=== PATIENT | male | born 1965 | race Caucasian/White ===

== ENCOUNTER 2017-04-29 19:36 | Emergency (ER) | payer BC, OTHER ==
[~2017-04-29] VITALS: Ht 200.7 cm; Wt 240.4 kg
[~2017-04-29 19:36] MED LIST: FELO10TA PO; FURO40TA4 PO; LOSA50TA6 PO; POT20T PO
[2017-04-29] MEDS ORDERED: cloNIDine HCL 0.1 MG TAB PO ONE (20:00)
[2017-04-29 20:28] LABS: Basophils # (auto) 0 uL; Basophils % (auto) 0.2 % (0.0-2.0); CONDITION AutoValidated; Eosinophils # (auto) 0 uL; Hematocrit 42.3 % (41.0-53.0); Hemoglobin 14.3 g/dL (13.5-17.5); Lymphocytes # (auto) 0.4 uL; Lymphocytes % (auto) 3.4 % (10.0-50.0); Mean Corpuscular Hemoglobin 29.6 pg (28.0-32.0); Mean Corpuscular Hgb Conc. 33.8 g/dL (32.0-36.0); Mean Corpuscular Volume 87.6 fL (80.0-100.0); Mean Platelet Volume 10.3 fL (7.4-10.4); Monocytes # (auto) 0.9 uL; Monocytes % (auto) 6.9 % (0.0-12.0); Neutrophils # (auto) 11.3 uL; Neutrophils % (auto) 89.5 % (37.0-80.0); Platelet Count (auto) 192 10^3/uL (140-450); Red Cell Distribution Width 14.2 % (11.6-16.0); White Blood Cell 12.7 10^3/uL (4.4-10.8)
[2017-04-29 20:35] LABS: INR 1.09 (0.9-1.15); Partial Thromboplastin Time 28.2 sec (22.64-33.71); Prothrombin Time 11.9 sec (9.37-12.3)
[2017-04-29 21:07] LABS: Albumin 3.5 g/dL (3.4-5.0); Alkaline Phosphatase 56 U/L (45-117); Amylase 16 U/L (25-115); Anion Gap 10 (5-15); Aspartate Aminotransferase 13 U/L (15-37); BUN/Creatinine Ratio 10.5; Bilirubin, Total 1.3 mg/dL (0.2-1.0); Blood Urea Nitrogen 19 mg/dL (7-18); Carbon Dioxide 25 mmol/L (21-32); Chloride 98 mmol/L (98-107); GFR African American 51 mL/min; GFR Non-African American 42 mL/min; Glucose 125 mg/dL (74-106); Potassium 3.6 mmol/L (3.5-5.1); Sodium 133 mmol/L (136-145); Total Protein 7.7 g/dL (6.4-8.2)
[2017-04-29 21:54] VITALS: BP 148/81
== END 2017-04-29 21:56 | disposition home or self-care (01) ==
LOC: EDBD 19:36 → ER 19:36
DX: K59.01 Slow transit constipation (principal); J44.9 Chronic obstructive pulmonary disease, unspecified; I10 Essential (primary) hypertension; E66.01 Morbid (severe) obesity due to excess calories; Z68.43 Body mass index [BMI] 50.0-59.9, adult; Z79.899 Other long term (current) drug therapy
CPT/HCPCS: 36415; 80053; 82150; 83690; 84484; 85025; 85610; 85730; 93005

== ENCOUNTER 2020-03-16 23:00 | Inpatient (IN) | payer BC ==
[~2020-03-16] VITALS: Ht 200.7 cm; Wt 249.0 kg
[~2020-03-16 23:00] MED LIST changes: -FELO10TA PO; +FELO10TA3 PO; +LOSA-69 PO; -LOSA50TA6 PO
[2020-03-16] MEDS ORDERED: methylPREDNISolone SOD SUCC 500 MG in SODIUM CHL 0.9% 100 ML IV ONE (23:30)
[2020-03-16] MEDS ORDERED: cefTRIAXone 1GM/50ML D5W 50 ML IV ONE (23:30)
[2020-03-16 23:37] LABS: Basophils # (auto) 0.1 10 ^3/uL (0-0.2); Basophils % (auto) 0.7 % (0.0-2.0); Eosinophils # (auto) 0 10 ^3/uL (0-0.8); Eosinophils % (auto) 0.3 % (0.0-7.0); Hematocrit 47.5 % (41.0-53.0); Hemoglobin 15.1 g/dL (13.5-17.5); Lymphocytes # (auto) 1.1 10 ^3/uL (0.4-5.4); Mean Corpuscular Hemoglobin 29.3 pg (28.0-32.0); Mean Corpuscular Hgb Conc. 31.8 g/dL (32.0-36.0); Mean Corpuscular Volume 92.1 fL (80.0-100.0); Monocytes # (auto) 0.8 10 ^3/uL (0-1.3); Monocytes % (auto) 9.2 % (0.0-12.0); Neutrophils # (auto) 6.9 10 ^3/uL (1.6-8.6); Neutrophils % (auto) 77.8 % (37.0-80.0); Nucleated Red Blood Cells % 0.1 %; Platelet Count (auto) 244 10^3/uL (140-450); Red Blood Cells 5.15 10^6/uL (4.5-5.90); Red Cell Distribution Width 17.9 % (11.8-14.3); White Blood Cell 8.9 10^3/uL (4.4-10.8)
[2020-03-16] MEDS ORDERED: dilTIAZem 25 MG/5 ML VIAL IV ONE (23:45)
[2020-03-16 23:52] LABS: INR 1.38 (0.9-1.15); Partial Thromboplastin Time 25.9 sec (23.64-32.05)
[2020-03-16 23:53] LABS: BUN/Creatinine Ratio 15.8; Calcium 8.8 mg/dL (8.5-10.1); Potassium 4.4 mmol/L (3.5-5.1)
[2020-03-16 23:58] LABS: Bilirubin, Total 2.2 mg/dL (0.2-1.0); Total Protein 7.8 g/dL (6.4-8.2)
[2020-03-17 00:13] LABS: Lactic Acid w/Reflex 3.3 mmol/L (0.4-2.0)
[2020-03-17] MEDS ORDERED: methylPREDNISolone SOD SUCC 125 MG/2 ML VL ONE ×2 (00:16→00:24)
[2020-03-17] MEDS ORDERED: methylPREDNISolone SOD SUCC 125 MG/2 ML VL IV ONE (00:30)
[2020-03-17] MEDS ORDERED: CARV25TA PO (00:59)
[2020-03-17] MEDS ORDERED: SPIR50TA2 PO (00:59)
[2020-03-17] MEDS ORDERED: FURO40TA4 PO (00:59)
[2020-03-17] MEDS ORDERED: TEMAZEPAM 15 MG CAP PO PRN (01:15)
[2020-03-17] MEDS ORDERED: DEXTROSE (50%) 50ML SYRG IV PRN (01:15)
[2020-03-17] MEDS ORDERED: METOPROLOL TARTRATE 1MG/1ML-5ML VIAL IV PRN (01:15)
[2020-03-17] MEDS ORDERED: IPRATROPIUM BROM 0.5 MG/2.5ML INH SOL NEB PRN (01:15)
[2020-03-17] MEDS ORDERED: HYDROcodone-ACET 5/325MG TAB PO PRN (01:15)
[2020-03-17] MEDS ORDERED: LORazepam 0.5 MG TAB PO PRN (01:15)
[2020-03-17] MEDS ORDERED: DOCUSATE SOD 100 MG CAP PO PRN (01:15)
[2020-03-17] MEDS ORDERED: ALBUTEROL SULF 2.5 MG/0.5ML(0.5%) NEB SOLN NEB PRN (01:15)
[2020-03-17] MEDS ORDERED: ONDANSETRON HCL 4 MG/2 ML VIAL IV PRN (01:15)
[2020-03-17] MEDS ORDERED: MORPHINE SULFATE 4 MG/ML SYR/VIAL IV PRN (01:15)
[2020-03-17] MEDS ORDERED: ACETAMINOPHEN 325 MG TAB PO PRN (01:15)
[2020-03-17 01:39] VITALS: BP 105/57
[2020-03-17] MEDS: ACCU-CHEK COMFORT CURVE STRIP VI SCH ×5 (04:49→19:47)
[2020-03-17] MEDS: InsuLIN REG 1unit/0.01ml Soln (100units/ml) SC SCH ×5 (04:49→19:52)
[2020-03-17] MEDS: CLINDAMYCIN 600MG IV 50 ML IV SCH ×3 (05:40→17:50)
[2020-03-17] MEDS ORDERED: ALBUTEROL SULF HFA 90MCG INH 200DOSE IN SCH (06:00)
[2020-03-17 07:26] LABS: Basophils # (auto) 0.1 10 ^3/uL (0-0.2); Basophils % (auto) 0.8 % (0.0-2.0); Eosinophils # (auto) 0 10 ^3/uL (0-0.8); Hematocrit 43.9 % (41.0-53.0); Lymphocytes # (auto) 0.5 10 ^3/uL (0.4-5.4); Lymphocytes % (auto) 6.2 % (10.0-50.0); Mean Corpuscular Hemoglobin 29.3 pg (28.0-32.0); Mean Corpuscular Hgb Conc. 31.9 g/dL (32.0-36.0); Mean Corpuscular Volume 91.8 fL (80.0-100.0); Monocytes # (auto) 0.2 10 ^3/uL (0-1.3); Monocytes % (auto) 2.4 % (0.0-12.0); Neutrophils # (auto) 7.1 10 ^3/uL (1.6-8.6); Neutrophils % (auto) 90.6 % (37.0-80.0); Platelet Count (auto) 186 10^3/uL (140-450); Red Blood Cells 4.78 10^6/uL (4.5-5.90); Red Cell Distribution Width 17.2 % (11.8-14.3); White Blood Cell 7.8 10^3/uL (4.4-10.8)
[2020-03-17 07:40] LABS: Potassium 4.3 mmol/L (3.5-5.1)
[2020-03-17 07:42] LABS: BUN/Creatinine Ratio 17.5
--- NOTE | 2020-03-17 08:24 | NUR ---
BARIATRIC BED: [place] [facility] Bariatric Bed ordered at [facility],Reference # [id number]; ETA 03/17/20 @1535, (If needed to follow up) Call Rm Ford at [phone] Addendum: 03/17/20 at 0825 by Talya Bustillo RN Amended: Links added.
[2020-03-17] MEDS ORDERED: methylPREDNISolone SOD SUCC 125 MG/2 ML VL IV SCH (10:00)
[2020-03-17] MEDS ORDERED: FUROSEMIDE 40 MG/4 ML VIAL IV SCH (10:00)
[2020-03-17] MEDS: CARVEDILOL 12.5 MG TAB PO SCH ×2 (10:13→22:03)
[2020-03-17] MEDS: SPIRONOLACTONE 25 MG TAB PO SCH (10:13)
--- NOTE | 2020-03-17 11:12 | NUR ---
WOUND CARE NOTE: Wound care in to see patient per wound care request regarding multiple skin integrity issue that are noted present on admission. Patient is 55 years old male admitted due to Mechanical Fall, Hx of CHF and COPD. Patient is resting in ER bed #5. Patient is awake, alert and oriented. He's in no stated pain at this time, however states that his legs is painful t touch. Skin assessment done with the assistance of patient's ER nurse, EDMUNDO Anderson. Patient came in with weeping edema, erythema to BLE with multi open and closed serum filled blisters. Lt calf has 6x5cm open partial thickness wound, Rt medial lower leg has 1.2x1.5cm and 0.5x0.5cm open partial thickness wound and 1x1cm intact serum filled blister. Large open blister also noted to his Rt posterolateral calf measuring 6x12cm. Wounds are red with bright and dark red, edematous, weeping with moderate amount of serous drainage, no odor noted. Cleansed BLE wounds with wound cleanser and photograph are taken for reference. Applied Thera honey gauze to multi open blisters, covered with Opti lock dressing and secured with Stockinette. Patient reported that he noted BLE swelling with multi blistering about "two to three days". He added that he has not seen MD for his BLE wounds as it is the first time it happened. He reported that he normally ambulates at home but he had a recent fall. Patient tolerated well. EDMUNDO Anderson at bedside. Patient has pending cardiology consult. RECOMMENDATION: Nursing to continue with EOD/PRN dressing change BLE wound per MD order,BID/PRN cleaning and application of Barrier cream to sacral buttocks as preventative, Dietary consult, frequent turning and repositioning schedule as condition permits,redistribute pressure points with pillows, Bariatric air bed (ordered), elevate affected extremity on pillows,continue monitoring by wound care while patient is hospitalized. Addendum: 03/17/20 at 1518 by Talya Abellar RN Amended: Links added.
[2020-03-17] MEDS: FUROSEMIDE 100 MG/10ML VIAL IV SCH ×2 (11:13→17:56)
[2020-03-17] MEDS: METOPROLOL TARTRATE 1MG/1ML-5ML VIAL IV PRN ×2 (11:15→20:54)
--- NOTE | 2020-03-17 14:00 | NUR ---
Telemetry admit from [facility] admitted to Telemetry unit after SBAR received. Patient oriented to Tawny Sanon RN primary RN, unit, room, bed, and unit policies regarding patient care and visiting hours. Patient now on continuous telemetry monitoring, tele box #71 and telemetry reading on arrival to unit is a fib. Patient placed on bedside oxygen at 4L nasal cannula, weighed by bedscale and encouraged to call if they need something. All questions and concerns addressed, patient verbalized understanding. Patient is alert and oriented x4. Bed is low, locked with 2x side rails up. Call light is within reach. Will continue to monitor Q1hr and PRN.
[2020-03-17 14:05] VITALS: BP 128/70
[2020-03-17 14:12] LABS: Urine Bacteria NONE SEEN /hpf (None Seen); Urine Blood Negative /uL (Negative); Urine Mucus FEW (None Seen); Urine Specific Gravity 1.009 (1.001-1.035); Urine WBC 2 /hpf (0 - 3)
--- NOTE | 2020-03-17 14:50 | NUR ---
EKG in chart EKG done per MD order. Filed in chart.
--- NOTE | 2020-03-17 15:00 | NUR ---
pt assessed for prn hhn tx. pt is on 4lnc, spo2 94%, hr 119, rr 21. no s/s of respiratory distress. hhn tx not indicated at this time. will continue to monitor.
[2020-03-17] MEDS ORDERED: DIGOXIN (250MCG/ML) 2 ML AMPULE IV ONE (15:45)
--- NOTE | 2020-03-17 16:24 | NUR ---
Incentive Spirometer Provided patient with incentive spirometer and educated patient on how to use device. Patient was able to perform a return demonstration. Will continue to monitor.
[2020-03-17 17:00] VITALS: BP 111/72
--- NOTE | 2020-03-17 20:10 | NUR ---
Respiratory note: PT ASSESSED FOR PRN MED NEB TX. HR 101, RR 20, SPO2 94% on 4l NC. NO SIGNS OF ANY RESPIRATORY DISTRESS NOTED. ADVISED PT TO CALL IF TX IS NEEDED. RT NAME AND PAGER NUMBER WRITTEN ON PT'S BOARD.
[2020-03-17 21:54] VITALS: BP 139/69
[2020-03-18] MEDS: CLINDAMYCIN 600MG IV 50 ML IV SCH ×4 (00:13→17:48)
[2020-03-18] MEDS: ACCU-CHEK COMFORT CURVE STRIP VI SCH ×5 (00:14→17:13)
[2020-03-18] MEDS: InsuLIN REG 1unit/0.01ml Soln (100units/ml) SC SCH ×5 (00:17→16:00)
[2020-03-18 05:00] VITALS: BP 89/52
[2020-03-18] MEDS: FUROSEMIDE 100 MG/10ML VIAL IV SCH ×2 (06:09→18:00)
[2020-03-18 06:16] LABS: Basophils # (auto) 0 10 ^3/uL (0-0.2); Basophils % (auto) 0.1 % (0.0-2.0); Eosinophils # (auto) 0 10 ^3/uL (0-0.8); Hemoglobin 12.8 g/dL (13.5-17.5); Lymphocytes # (auto) 0.5 10 ^3/uL (0.4-5.4); Lymphocytes % (auto) 5.1 % (10.0-50.0); Mean Corpuscular Hemoglobin 30.1 pg (28.0-32.0); Mean Corpuscular Hgb Conc. 32.9 g/dL (32.0-36.0); Mean Corpuscular Volume 91.5 fL (80.0-100.0); Monocytes # (auto) 0.6 10 ^3/uL (0-1.3); Monocytes % (auto) 6.2 % (0.0-12.0); Neutrophils % (auto) 88.6 % (37.0-80.0); Nucleated Red Blood Cells % 0.1 %; Platelet Count (auto) 165 10^3/uL (140-450); Red Blood Cells 4.26 10^6/uL (4.5-5.90); Red Cell Distribution Width 17.9 % (11.8-14.3); White Blood Cell 10.2 10^3/uL (4.4-10.8)
[2020-03-18 06:26] LABS: BUN/Creatinine Ratio 20.9; Calcium 8.3 mg/dL (8.5-10.1); Potassium 4.5 mmol/L (3.5-5.1)
[2020-03-18 06:42] VITALS: BP 116/50
[2020-03-18 09:00] VITALS: BP 99/49
--- NOTE | 2020-03-18 09:00 | NUR ---
Insulin refused Patient had just finished breakfast when blood sugar was checked. BS was 153. Patient refused insulin at this time stating his blood sugar is generally well controlled and is only higher because he just ate. Will check again at noon as scheduled.
[2020-03-18] MEDS: SPIRONOLACTONE 25 MG TAB PO SCH (10:00)
[2020-03-18] MEDS: CARVEDILOL 12.5 MG TAB PO SCH (10:00)
--- NOTE | 2020-03-18 10:00 | NUR ---
Respiratory note: PATIENT ASSESSED FOR PRN TX, MED-NEB NOT INDICATED AT THIS TIME PATIENT DENIED NEED AND WAS IN NO ACUTE RESPIRATORY DISTRESS. HE WAS INSTRUCTED TO CALL FOR RT IF HE FELT A NEED FOR TX AT A LATER TIME. SPO2 93% 3LPM N/C
[2020-03-18] MEDS ORDERED: OPTISON 3ml Vial for INJ IV ONE (10:47)
[2020-03-18] MEDS ORDERED: FURO40TA4 PO (11:51)
[2020-03-18] MEDS ORDERED: CLIN300C8 PO (11:51)
--- NOTE | 2020-03-18 12:39 | NUR ---
Possible DC/Paged [place]/O2 Received a call from Dr. Jose Guadalupe Birmingham regarding patient discharge. He said to check the patient's O2 on RA and if it is below 90% to add Home O2 to the SS consult. Removed O2. Will monitor patient. He was instructed to call with any problems, such as SOB. Also call Dr. Carl regarding clearance for patient to be DC'd and find out if the MD wants the patient on ASA or Eliquis or another anticoagulant due to the patient's new onset of AFib. This nurse called and left a message for Dr. Carl regarding these questions. Waiting to hear back.
[2020-03-18 13:00] VITALS: BP 90/52
--- NOTE | 2020-03-18 13:56 | NUR ---
Oxygen sat./RA Patient's O2 was <90% on RA. It was between 85-88%. This nurse put the patient on 2L NC and O2 came up to a steady 92%.
--- NOTE | 2020-03-18 15:39 | NUR ---
Dr. Carl/Cleared/blood thinner Per Dr. Carl, the patient is cleared for discharge. He said to start the patient on an DEMETRIS and ARB and start him on Eliquis 5 mg BID.
[2020-03-18] MEDS ORDERED: APIX5TAB PO (16:39)
[2020-03-18 17:00] VITALS: BP 118/72
--- NOTE | 2020-03-18 17:38 | NUR ---
Assessment Patient is a 55-year old male who is alert and oriented. Unable to speak to patient. Assessment was completed by patient son Edward ) . Prior to admission patient lived home with his family. Patient functioned with assistance. Per Edward they help patient with his ADLs. Patient son Edward informed me patient does not have medical equipment now. Patient will return home to his prior living arrangements post discharge and family will transport patient home. Advised patient re [facility] there is a Social Service for home health safety evaluation, physical therapy, FWW and home oxygen. Informed Edward home health order will be faxed to contracted agency and medical equipment will be faxed to . Informed patient son Edward he has the right to participate in all discharge planning. Edward verbalized understanding and agrees to discharge plan. Placed call to TANG Garcia with [facility] ) informing her patient had orders for home health and medical equipment. Faxed clinical information to requesting FWW and portable to be deliver to the front lobby. Faxed clinical information to [facility]. [facility] is unable to service the patient now due to no RN available. Per Oneyda with [facility]:( [phone]) Patient has been accepted and service to start within 24-48hrs upon d/c. Informed MANAGER UNIX Samra with [facility] regarding home health agency. Placed call to Ph:) spoke, Nan. Per Nan with they will deliver bariatric FWW and Portable to front lobby. Informed EDMUNDO Kapoor. Addendum: 03/18/20 at 1748 by RETA HAWKINS Amended: Links added.
--- NOTE | 2020-03-18 18:19 | NUR ---
O2 delivered/spoke with Dr. Birmingham Portable O2 tank was delivered. Spoke with Dr. Birmingham regarding situation. He said it was ok to D/C the patient without home health and for home health to follow up with him outpatient. Pt stated twice that P.T. told him to take home the large walker in his room.
--- NOTE | 2020-03-18 19:19 | NUR ---
DISCHARGE Went over discharge paperwork and appointments with patient. Prescription called in to pharmacy by MD. Portable O2 delivered to bedside. Removed IV intact, no problems. Removed telemetry and sent to ICU per hospital protocol. Per patient, dressings were put on BLE yesterday. Dr. Dwyer was in to see the patient today and told him to leave the dressings on for 2 days and then change them. This nurse did not take pictures of his legs as the dressings are clean, dry, intact and pictures were taken yesterday.
== END 2020-03-18 19:30 | disposition home health service (06) | DRG 291 ==
LOC: ER 23:00 → EDBD 23:00 → TELE 23:01 → TELE-WESTW 03-17 13:50
PROVIDERS: ADMIT Hospitalist; ATTEND Hospitalist
DX: I13.0 Hypertensive heart and chronic kidney disease with heart failure and stage 1 through stage 4 chronic kidney disease, or unspecified chronic kidney disease (principal); I50.23 Acute on chronic systolic (congestive) heart failure; J44.1 Chronic obstructive pulmonary disease with (acute) exacerbation; L03.115 Cellulitis of right lower limb; L03.116 Cellulitis of left lower limb; Z68.44 Body mass index [BMI] 60.0-69.9, adult; E11.22 Type 2 diabetes mellitus with diabetic chronic kidney disease; E66.01 Morbid (severe) obesity due to excess calories; H40.9 Unspecified glaucoma; I25.10 Atherosclerotic heart disease of native coronary artery without angina pectoris; I48.91 Unspecified atrial fibrillation; I87.2 Venous insufficiency (chronic) (peripheral); I87.8 Other specified disorders of veins; N18.3 Chronic kidney disease, stage 3 (moderate); R09.02 Hypoxemia; W01.0XXA Fall on same level from slipping, tripping and stumbling without subsequent striking against object, initial encounter; Y93.01 Activity, walking, marching and hiking; Z82.49 Family history of ischemic heart disease and other diseases of the circulatory system; Z91.19 Patient's noncompliance with other medical treatment and regimen; Y92.89 Other specified places as the place of occurrence of the external cause; Y99.8 Other external cause status; Z79.899 Other long term (current) drug therapy
CPT/HCPCS: 36415; 71045; 80048; 80053; 81001; 82962; 83036; 83605; 83735; 83880; 84484; 85025; 85379; 85610; 85730; 87040; 87086; 93005; 93306; 93970; 96365; 96375; 96376; 97163; 99291; G0378; J0696; J1815; J3490; Q9956